=== PATIENT | male | born 2000 | race Caucasian/White ===

== ENCOUNTER 2020-12-03 02:07 | Emergency (ER) | payer SELFPAY ==
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
[2020-12-03 02:42] LABS: Urine Blood 1+ (Negative); Urine Glucose Negative (Negative); Urine Protein Negative (Negative); Urine Specific Gravity 1.025 (1.005-1.030); Urine pH 5.5 (5.0-7.0)
[2020-12-03 02:46] LABS: Absolute Lymphocytes (CBC) 2.4 K/uL (0.7-4.9); Basophils % 0.4 % (0-1.3); Hematocrit 40.6 % (39.6-49.0); Lymphocytes % 23.9 % (15.3-44.8); MPV 9.6 fL (7.6-11.3); RBC Red Blood Cell Count 4.79 M/uL (4.33-5.43)
[2020-12-03 02:49] LABS: Protime INR 1.12
[2020-12-03] MEDS ORDERED: NA CHLORIDE 0.9% 1,000 ML ONE (02:56)
[2020-12-03 03:03] LABS: ALT/SGPT 20 U/L (12-78); AST/SGOT 14 U/L (15-37); Albumin 4.2 g/dL (3.4-5.0); Alkaline Phosphatase 96 U/L (45-117); BUN Blood Urea Nitrogen 19 mg/dL (7-18); Bicarbonate 30 mmol/L (21-32); Bilirubin Direct 0.2 mg/dL (0-0.2); Bilirubin Total 1.1 mg/dL (0.2-1.0); Glucose Level 99 mg/dL (74-106); Protein, Total 8.1 g/dL (6.4-8.2); Sodium Level 137 mmol/L (136-145)
[2020-12-03 03:47] LABS: Barbiturates NEGATIVE (NEGATIVE); Benzodiazepines POSITIVE (NEGATIVE); Cocaine POSITIVE (NEGATIVE); METHAMPHETAM POSITIVE (NEGATIVE); Methadone NEGATIVE (NEGATIVE); Opiates NEGATIVE (NEGATIVE); Phencyclidine NEGATIVE (NEGATIVE); THC Cannibis POSITIVE (NEGATIVE)
--- NOTE | 2020-12-03 07:18 | ER ---
Nurse's Notes [facility] Name: Fabián Folsom Age: 20 yrs Sex: Male : 2000 Arrival Date: 12/03/2020 Time: 02:09 Bed 4 Private MD: Diagnosis: Altered mental status, unspecified;Abuse of non-psychoactive substances;Cocaine abuse;Adverse effect of benzodiazepines;Adverse effect of amphetamines Presentation: 12/03 02:09 Chief complaint: EMS states: patient found sleeping on the grass outside the apartment ea shallow respiration PD on scene, when we arrived RR 14-16 cpm patient became more awake, denies hurting himself. patient took oxycodone and has history last october of taking oxycodone. Coronavirus screen: unable to complete. Ebola Screen: Unable to complete the Ebola screening because: The patient is disoriented. Initial Sepsis Screen: Does the patient meet any 2 criteria? No. Patient's initial sepsis screen is negative. Does the patient have a suspected source of infection? No. Patient's initial sepsis screen is negative. Risk Assessment: Do you want to hurt yourself or someone else? Unable to obtain. Onset of symptoms was December 03, 2020 at 01:00. 02:09 Method Of Arrival: EMS: [facility] ea 02:09 Acuity: BREA 2 ea 02:09 Note unknown amount of oxycodone taken by the patient as stated by EMS. rr5 Historical: - Allergies: 02:15 No Known Allergies; ea - PMHx: 02:15 Depression; ADD/ADHD; ea - Immunization history:: Adult Immunizations unknown. - Social history:: Smoking status: unknown. Screenin:16 Abuse screen: Denies threats or abuse. Denies injuries from another. Nutritional ea screening: No deficits noted. Tuberculosis screening: No symptoms or risk factors identified. Fall Risk IV access (20 points). Gait- Impaired (20 pts.). Mental Status- Overestimates/Forgets Limitations (15 pts.). Total Beauchamp Fall Scale indicates High Risk Score (45 or more points). Fall prevention measures have been instituted. Side Rails Up X 2 Placed Close to Nursing Station Frequent Obs/Assessments Occuring As available patient and family educated on Fall Prevention Program and Strategies. Assessment: 02:17 General: Appears in no apparent distress. Behavior is drowsy. Pain: Unable to use pain ea scale. Patient appears confused. Neuro: Level of Consciousness is awake, confused, Oriented to none. Cardiovascular: Capillary refill < 3 seconds Patient's skin is warm and dry. Respiratory: Airway is patent Respiratory effort is even, unlabored, Respiratory pattern is regular, symmetrical. GI:. Derm: Skin temperature is warm. Musculoskeletal: Capillary refill < 3 seconds. 02:32 Reassessment: spoke to poison control [place] . give IVF, repeat rr5 tylenol level 4 hour post ingestion, continues monitoring and get urine sample. 04:00 Reassessment: Patient and/or family updated on plan of care and expected duration. Pain ea level reassessed. Pt resting with eyes closed, respirations even and unlabored. Chest expansions even and symmetrical. Pt awakens to loud stimulus. 05:33 Reassessment: Patient and/or family updated on plan of care and expected duration. Pain ea level reassessed. Pt resting with eyes closed, respirations even and unlabored. Chest expansions even and symmetrical. Pt awakens to loud stimulus. 08:13 Reassessment: Patient and/or family updated on plan of care and expected duration. Pain tr6 level reassessed. pt still drowsy. VSS. will continue to monitor. Vital Signs: 02:09 BP 120 / 92; Pulse 96; Resp 16; Temp 97; Pulse Ox 100% ; rr5 03:56 BP 106 / 63; Pulse 73; Resp 19; Pulse Ox 98% ; rr5 04:09 BP 103 / 64; Pulse 70; Resp 18; Pulse Ox 99% ; ea 05:09 BP 129 / 98; Pulse 75; Resp 17; Pulse Ox 98% ; rr5 08:00 BP 92 / 59; Pulse 55; Resp 13; Pulse Ox 100% on R/A; tr6 ED Course: 02:09 Patient arrived in ED. mw2 02:09 Rowan Coburn RN is Primary Nurse. ea 02:15 Triage completed. ea 02:16 Chalino Stahl MD is Attending Physician. mh7 02:16 Arm band placed on right wrist. ea 02:16 Maintain EMS IV. Dressing intact. Good blood return noted. Site clean \T\ dry. Gauge \T\ ea site: G 20 left Ac. 02:17 Patient has correct armband on for positive identification. Placed in gown. Bed in low ea position. Side rails up X2. bus monitor on. Pulse ox on. NIBP on. 02:20 EKG done, by ED staff, reviewed by Chalino Stahl MD. rr5 02:41 Urine collected: straight cath specimen, clear. rr5 07:15 Attending Physician role handed off by Chalino Stahl MD rip 07:15 Santhosh Meade MD is Attending Physician. rip 09:00 No provider procedures requiring assistance completed. kg 09:00 IV discontinued, intact, bleeding controlled, No redness/swelling at site. Pressure kg dressing applied. Administered Medications: 02:42 Drug: NS 0.9% 1000 ml Route: IV; Rate: 1 bolus; Site: left antecubital; rr5 03:45 Follow up: Response: No adverse reaction; IV Status: Completed infusion; IV Intake: rr5 1000ml Intake: 03:45 IV: 1000ml; Total: 1000ml. rr5 Outcome: 07:17 Discharge ordered by . rip 09:00 Discharge instructions given to patient, Instructed on discharge instructions, kg Demonstrated understanding of instructions. 09:39 Patient left the ED. iw 09:47 Discharged to home ambulatory. kg 09:47 Condition: improved Signatures: Santhosh Meade MD MD cha Williams, Irene RN CHEN iw Rowan Coburn RN RN ea [place], MyKena mw2 Ravindra Daigle RN RN rr5 Chalino Stahl MD MD [address] RN RN tr6 Maren Bacon RN RN kg Corrections: (The following items were deleted from the chart) 02:34 02:09 BP 120 / 92; Pulse 96bpm; Resp 16bpm; Pulse Ox 100%; ea rr5 02:41 02:09 Onset of symptoms was December 03, 2020 ea rr5 05:32 05:31 BP 103 / 64; Pulse 70bpm; Resp 18bpm; Pulse Ox 99%; ea ea 05:33 04:00 Reassessment: Patient and/or family updated on plan of care and expected ea duration. Pain level reassessed. Pt resting with eyes closed, respirations even and unlabored. Chest expansions even and symmetrical. Pt awakens to loud stimulus. ea
--- NOTE | 2020-12-03 07:18 | EDPHYS ---
Physician Documentation [facility] Name: Fabián Dalton Age: 20 yrs Sex: Male : 2000 Arrival Date: 12/03/2020 Time: 02:09 Bed 4 Private MD: ED Physician Santhosh Meade HPI: 12/03 02:45 This 20 yrs old Male presents to ER via EMS with complaints of Possible mh7 Overdose. 02:45 The patient presents to the emergency department after a known overdose, that was mh7 accidental. Context: Method: the patient has a confirmed or suspected ingestion, of narcotics, Time: the patient's OD/poisoning occurred at an unknown time, Extent: it is unknown what amount the patient ingested, the OD/poisoning occurred at on a street or driveway, and was witnessed by a friend, Psychiatric history: the patient has a known psychiatric disorder, depression, Previous OD/poisoning history: It is unknown if the patient has had similar previous episodes. Associated signs and symptoms: Pertinent positives: decreased level of consciousness. Severity of symptoms: At their worst the symptoms were moderate today, in the emergency department the symptoms are unchanged. 02:46 Per EMS patient reported to taking Oxycodone and laid in grass. Denied wanting to harm mh7 himself. Denies injuries.. Historical: - Allergies: 02:15 No Known Allergies; ea - PMHx: 02:15 Depression; ADD/ADHD; ea - Immunization history:: Adult Immunizations unknown. - Social history:: Smoking status: unknown. ROS: 02:46 Unable to obtain ROS due to Somnolent. mh7 Exam: 02:46 Head/Face: Normocephalic, atraumatic. Eyes: Pupils equal round and reactive to light, mh7 extra-ocular motions intact. Lids and lashes normal. Conjunctiva and sclera are non-icteric and not injected. Cornea within normal limits. Periorbital areas with no swelling, redness, or edema. ENT: Nares patent. No nasal discharge, no septal abnormalities noted. Tympanic membranes are normal and external auditory canals are clear. Oropharynx with no redness, swelling, or masses, exudates, or evidence of obstruction, uvula midline. Mucous membranes moist. Neck: Trachea midline, no thyromegaly or masses palpated, and no cervical lymphadenopathy. Supple, full range of motion without nuchal rigidity, or vertebral point tenderness. No Meningismus. Chest/axilla: Normal chest wall appearance and motion. Nontender with no deformity. No lesions are appreciated. Cardiovascular: Regular rate and rhythm with a normal S1 and S2. No gallops, murmurs, or rubs. Normal PMI, no JVD. No pulse deficits. Respiratory: Lungs have equal breath sounds bilaterally, clear to auscultation and percussion. No rales, rhonchi or wheezes noted. No increased work of breathing, no retractions or nasal flaring. Abdomen/GI: Soft, non-tender, with normal bowel sounds. No distension or tympany. No guarding or rebound. No evidence of tenderness throughout. Back: No spinal tenderness. No costovertebral tenderness. Full range of motion. 02:46 Constitutional: The patient appears sleeping, arousal to verbal stimuli 02:46 Musculoskeletal/extremity: Extremities: noted in the left knee: abrasion, ROM: intact in all extremities, Circulation is intact in all extremities. Sensation intact. Joints: All joints appear normal with full range of motion. Tendon exam: specific tendon testing normal through active and passive range of motion 02:46 Skin: injury, abrasion(s), very small abrasion noted, of the left knee. 02:46 Neuro: Orientation: unable to test, the patient is clinically intoxicated, Mentation: unable to test, the patient is clinically intoxicated, Memory: unable to test, the patient is clinically intoxicated, Cranial nerves: unable to test, the patient is clinically intoxicated, Cerebellar function: unable to test, the patient is clinically intoxicated, Motor: moves all fours, Sensation: is normal, Gait: not tested. seizure activity, is not displayed by the patient, Abnormal movements: there are no abnormal movements. Vital Signs: 02:09 BP 120 / 92; Pulse 96; Resp 16; Temp 97; Pulse Ox 100% ; rr5 03:56 BP 106 / 63; Pulse 73; Resp 19; Pulse Ox 98% ; rr5 04:09 BP 103 / 64; Pulse 70; Resp 18; Pulse Ox 99% ; ea 05:09 BP 129 / 98; Pulse 75; Resp 17; Pulse Ox 98% ; rr5 08:00 BP 92 / 59; Pulse 55; Resp 13; Pulse Ox 100% on R/A; tr6 MDM: 07:16 Patient medically screened. rip 12/03 02:14 Order name: Acetaminophen; Complete Time: 03:57 ea 12/03 02:14 Order name: Basic Metabolic Panel; Complete Time: 03:57 ea 12/03 02:14 Order name: CBC with Diff; Complete Time: 03:57 ea 12/03 02:14 Order name: ETOH Level; Complete Time: 03:57 ea 12/03 02:14 Order name: Hepatic Function; Complete Time: 03:57 ea 12/03 02:14 Order name: PT-INR; Complete Time: 03:57 12/03 02:14 Order name: Ptt, Activated; Complete Time: 03:57 ea 12/03 02:14 Order name: Salicylate; Complete Time: 03:57 ea 12/03 02:14 Order name: Urine Drug Screen; Complete Time: 03:57 ea 12/03 02:14 Order name: EKG; Complete Time: 02:15 ea 12/03 02:14 Order name: EKG - Nurse/Tech; Complete Time: 02:14 12/03 02:41 Order name: Urine Dipstick-Ancillary; Complete Time: 03:57 EDMS 12/03 05:09 Order name: Tylenol Level; Complete Time: 06:26 rr5 12/03 02:14 Order name: IV Saline Lock; Complete Time: 02:14 ea 12/03 02:14 Order name: Labs collected and sent; Complete Time: 02:14 ea 12/03 02:14 Order name: Urine Dipstick-Ancillary (obtain specimen); Complete Time: 02:41 ea 12/03 02:41 Order name: Straight Cath - Urine; Complete Time: 02:41 rr5 Administered Medications: 02:42 Drug: NS 0.9% 1000 ml Route: IV; Rate: 1 bolus; Site: left antecubital; rr5 03:45 Follow up: Response: No adverse reaction; IV Status: Completed infusion; IV Intake: rr5 1000ml Disposition: 12/03/20 07:17 Discharged to Home. Impression: Altered mental status, unspecified, Abuse of non-psychoactive substances, Cocaine abuse, Adverse effect of benzodiazepines, Adverse effect of amphetamines. - Condition is Stable. - Discharge Instructions: Stimulant Use Disorder-Amphetamines, Stimulant Use Disorder-Cocaine, Confusion, Substance Use Disorder, Stimulant Use Disorder-Methamphetamines. - Medication Reconciliation Form, Thank You Letter, Antibiotic Education, Prescription Opioid Use form. - Follow up: Private Physician; When: 2 - 3 days; Reason: Recheck today's complaints, Continuance of care, Re-evaluation by your physician. - Problem is new. - Symptoms have improved. Signatures: Dispatcher [employer] EDSanthosh Moser MD MD cha Williams, Irene, RN RN iw Rowan Coburn RN Ravindra Burns ea, RN RN rr5 Chalino Stahl MD MD 7 Corrections: (The following items were deleted from the chart) 02:15 02:14 Suicide Screening ([place]) ordered. gilma dillard 09:39 07:17 12/03/2020 07:17 Discharged to Home. Impression: Altered mental status, iw unspecified; Abuse of non-psychoactive substances; Cocaine abuse; Adverse effect of benzodiazepines; Adverse effect of amphetamines. Condition is Stable. Forms are Medication Reconciliation Form, Thank You Letter, Antibiotic Education, Prescription Opioid Use. Follow up: Private Physician; When: 2 - 3 days; Reason: Recheck today's complaints, Continuance of care, Re-evaluation by your physician. Problem is new. Symptoms have improved. rip
--- NOTE | 2020-12-03 08:42 | EKG ---
Test Date: 2020-12-03 Test Time: 02:11:36 Director University: [employer] MEASUREMENT RESULTS: Intervals: Rate: 78 MI: 150 QRSD: 102 QT: 400 QTc: 456 [place]: P: 78 MI: 150 QRS: 88 T: 68 INTERPRETIVE STATEMENTS: Normal sinus rhythm Normal ECG No previous ECG available for comparison Electronically Signed On 12-03-20 08:42:44 CDT by Ruslan Martinez
[2020-12-03 09:47] VITALS: TEMP 97
[2020-12-03 09:53] VITALS: BP 92/59; O2SAT 100
== END 2020-12-03 09:39 | disposition home or self-care (01) ==
LOC: ER 02:07
DX: F14.10 Cocaine abuse, uncomplicated (principal); F13.129 Sedative, hypnotic or anxiolytic abuse with intoxication, unspecified; F15.129 Other stimulant abuse with intoxication, unspecified; F55.8 Abuse of other non-psychoactive substances; R41.82 Altered mental status, unspecified; F90.9 Attention-deficit hyperactivity disorder, unspecified type; F32.9 Major depressive disorder, single episode, unspecified
CPT/HCPCS: 36415; 80048; 80076; 80307; 80320; 80329; 81003; 85025; 85610; 85730; 93005; 96360; 99284; J7030